=== PATIENT | female | born 1965 | race Caucasian/White ===

== ENCOUNTER 2019-08-07 14:45 | Emergency (ER) | payer OTHER ==
[2019-08-07 14:55] VITALS: RESP 18; TEMP 98
[2019-08-07 15:15] LABS: Glucose,Whole Blood 166 mg/dL (75-99)
[2019-08-07] MEDS ORDERED: HYDROcodone/APAP 5-325MG 1 EACH TAB PO STA (15:26)
--- NOTE | 2019-08-07 15:46 | XR ---
EXAMINATION TYPE: XR knee complete RT DATE OF EXAM: 08/07/2019 COMPARISON: NONE HISTORY: Knee pain TECHNIQUE: 3 views FINDINGS: There is some narrowing of the medial joint space. There is spurring of the femoral and tib ial condyles. There is spurring on the patella. There is no sign of joint effusion. I see no fracture nor dislocation. IMPRESSION: Moderately severe osteoarthritis in the medial joint space. No fracture seen.
[2019-08-07] MEDS ORDERED: ACET/COD 300 MG/30 MG STARTER PACK 6 TAB BTL PO STA (15:53)
--- NOTE | 2019-08-07 15:53 | ED ---
Lower Extremity Injury HPI - General Chief Complaint: Extremity Injury, Lower Stated Complaint: Knee Pain Time Seen by Provider: 08/07/19 14:46 Source: patient, EMS, RN notes reviewed Mode of arrival: EMS Limitations: no limitations - History of Present Illness Initial Comments: This a 54-year-old female presents emergency Department with chief complaint of right knee pain. Patient had chronic knee pain bilaterally secondary to arthritic changes states that she twists her knee yesterday and fell down the ground. Patient went immediately. The right. No head injury no other muscle skeletal injury. Patient did not apply any heat or ice to not taking medications today for the pain. Patient states unbearable. Patient denies any other complaints. - Related Data Home Medications Medication Instructions Recorded Confirmed Ibuprofen [Motrin] 800 mg PO BID 07/15/16 05/25/18 levETIRAcetam [Keppra] 500 mg PO DAILY 07/15/16 05/25/18 LORazepam [Ativan] 1 mg PO BID 07/25/16 05/25/18 ARIPiprazole [Abilify] 10 mg PO HS 05/25/18 05/25/18 DULoxetine HCL [Cymbalta] 60 mg PO BID 05/25/18 05/25/18 Sulfamethox-Tmp 800-160Mg [Bactrim 1 tab PO Q12HR 05/25/18 05/25/18 DS 800-160 mg] cloNIDine HCL [Catapres] 0.1 mg PO DAILY 05/25/18 05/25/18 Previous Rx's Medication Instructions Recorded Ranitidine HCl [Zantac] 150 mg PO BID #60 tab 08/31/15 Allergies Allergy/AdvReac Type Severity Reaction Status Date / Time cephalexin monohydrate Allergy Unknown Verified 05/25/18 15:12 [From Keflex] Penicillins Allergy Unknown Verified 05/25/18 15:12 Review of Systems ROS Statement: Those systems with pertinent positive or pertinent negative responses have been documented in the HPI. ROS Other: All systems not noted in ROS Statement are negative. Past Medical History Past Medical History: GERD/Reflux, Osteoarthritis (OA), Seizure Disorder Additional Past Medical History / Comment(s): States (1 ) seizure 2 years ago., Kidney stones, states bone on bone knee pain- uses cane prn., Heart murmur ., states lower teeth pulled- states cellulitis of gums and jaw infection - unable to open mouth due to pain., states difficulty eating., states friend Mady Murcia helps with doing her Laundry and Shopping. History of Any Multi-Drug Resistant Organisms: None Reported Past Surgical History: Cholecystectomy, Tonsillectomy Additional Past Surgical History / Comment(s): Right rotator cuff repair Past Anesthesia/Blood Transfusion Reactions: No Reported Reaction, Motion Sickness Additional Past Anesthesia/Blood Transfusion Reaction / Comment(s): . Past Psychological History: Anxiety, Depression, PTSD, Schizophrenia Smoking Status: Heavy tobacco smoker Past Alcohol Use History: None Reported Past Drug Use History: None Reported, Prescription Drug Abuse - Past Family History Father Additional Family Medical History / Comment(s): Father has passed, ORGAN FAILURE Mother Family Medical History: Myocardial Infarction ([place]) Additional Family Medical History / Comment(s): Mother at age 70 from [place]. Brother(s) Additional Family Medical History / Comment(s): She has 2 brothers that have passed. One from [place] and one unknown cause. Sister(s) Additional Family Medical History / Comment(s): She has one sister alive and one has from heroin OD. General Exam Limitations: no limitations General appearance: alert, in no apparent distress Head exam: Present: atraumatic, normocephalic, normal inspection Respiratory exam: Present: normal lung sounds bilaterally. Absent: respiratory distress, wheezes, rales, rhonchi, stridor Cardiovascular Exam: Present: regular rate, normal rhythm, normal heart sounds. Absent: systolic murmur, diastolic murmur, rubs, gallop, clicks Extremities exam: Present: other (Right knee there is tenderness the medial aspect patient has full range of motion neurovascular intact there is no abrasions or lacerations no notable edema or ecchymosis, no laxity noted pain with valgus) Neurological exam: Present: alert Skin exam: Present: warm, dry, intact, normal color. Absent: rash Course Vital Signs 08/07/19 14:48 Temperature 98.0 F Pulse Rate 85 Respiratory 18 Rate Blood Pressure 112/87 O2 Sat by Pulse 97 Oximetry Medical Decision Making - Medical Decision Making 54-year-old female presents from for right knee pain. Patient has a right knee sprain. Patient placed in knee immobilizer for comfort care she is advised to follow-up with orthopedics secondary to persistent knee pain, arthritic changes and knee sprain - Lab Data Lab Results 08/07/19 Range/Units 15:14 POC Glucose (mg/dL) 166 H (75-99) mg/dL POC Glu Cell Attendant Helper ID Nimco Levi Disposition Clinical Impression: Right knee sprain Disposition: HOME SELF-CARE Condition: Stable Instructions (If sedation given, give patient instructions): Knee Sprain (ED) Additional Instructions: Please return to the Emergency Department if symptoms worsen or any other concerns. Is patient prescribed a controlled substance at d/c from ED?: No Referrals: Yosef Solis DO [Primary Care Provider] - 1-2 days Karla Ríos DO [Doctor of Osteopathic Medicine] - 1-2 days Time of Disposition: 15:52
[2019-08-07 16:16] VITALS: BP 116/69; PULSE 87
== END 2019-08-07 16:52 | disposition home or self-care (01) ==
LOC: EC 14:45
DX: S83.91XA Sprain of unspecified site of right knee, initial encounter (principal); M17.11 Unilateral primary osteoarthritis, right knee; G40.909 Epilepsy, unspecified, not intractable, without status epilepticus; F32.9 Major depressive disorder, single episode, unspecified; F20.9 Schizophrenia, unspecified; F41.9 Anxiety disorder, unspecified; F17.200 Nicotine dependence, unspecified, uncomplicated; Z88.0 Allergy status to penicillin; Z88.1 Allergy status to other antibiotic agents; Z79.1 Long term (current) use of non-steroidal anti-inflammatories (NSAID); Z79.899 Other long term (current) drug therapy; Z86.19 Personal history of other infectious and parasitic diseases; W01.0XXA Fall on same level from slipping, tripping and stumbling without subsequent striking against object, initial encounter
CPT/HCPCS: 36415; 99284